=== PATIENT | female | born 1985 | race Hispanic/Latino ===

== ENCOUNTER → 2018-09-30 | Outpatient (CLI) | payer OTHER | END | disposition home or self-care (01) | LOC: EEVIPCON 07:37 → RAH 07:37 | PROVIDERS: ATTEND Internal Medicine | DX: N60.01 Solitary cyst of right breast (principal); R59.9 Enlarged lymph nodes, unspecified; Z80.3 Family history of malignant neoplasm of breast | CPT/HCPCS: 76641; 77066 ==